=== PATIENT | male | born 1955 | race Caucasian/White ===

== ENCOUNTER 2024-11-27 15:46 | Inpatient (IN) | payer MEDICARE, BC ==
[2024-11-27 17:08] LABS: APPEARANCE,URINE CLEAR (CLEAR); GLUCOSE,URINE NEGATIVE (NEGATIVE); OCCULT BLOOD,URINE NEGATIVE (NEGATIVE)
[2024-11-27] MEDS: Iopamidol 755 Mg/ML 100 ML Bottle IV SCH (17:09)
[2024-11-27 17:13] LABS: EPITHELIAL CELLS,URINE FEW
[2024-11-27 20:30] LABS: LACTIC ACID 0.7 mmol/L (0.4-2.0)
[2024-11-27] MEDS ORDERED: Sennosides/Docusate Sodium 50-8.6 MG Tab PO PRN (20:32)
[2024-11-27] MEDS ORDERED: Ondansetron 4 MG Tab.DIS PO PRN (20:32)
[2024-11-27] MEDS ORDERED: Ondansetron 4 MG/2 ML SDV IV PRN (20:32)
[2024-11-27] MEDS: Fish Oil/Omega-3 Fatty Acids 1 Gm Cap PO SCH (21:29)
[2024-11-27] MEDS: Lactobacillus Rhamnosus GG (Probiotic) Cap PO SCH (21:30)
[2024-11-28 06:02] LABS: PLATELET COUNT,PLT 172.0 K/uL (130-375); RED BLOOD CELL COUNT 3.7 M/uL (4.14-5.76)
[2024-11-28 06:10] LABS: WHITE BLOOD CELL COUNT,WBC 0.9 K/uL (3.2-11.0)
[2024-11-28 06:25] LABS: BLOOD UREA NITROGEN,BUN 12.0 mg/dL (7-18); CARBON DIOXIDE,CO2 26.0 mmol/L (21-32); CHLORIDE,CL 103.0 mmol/L (100-108); CREATININE 0.9 mg/dL (0.8-1.3); EST CRCL DRUG DOSING (CG) 74.06 mL/min; ESTIMATED GFR 91.0 mL/min (>60); GLUCOSE RANDOM 86.0 mg/dL (74-106); POTASSIUM,K 3.5 mmol/L (3.6-5.2); SODIUM,NA 138.0 mmol/L (140-148)
[2024-11-28] MEDS: Verapamil 180 MG Tab.ER PO SCH (08:14)
[2024-11-28] MEDS: Fluticasone NASAL Spray 16 GM Bottle NASBOTH SCH (08:15)
[2024-11-28] MEDS: Hypromellose 0.3% Ophth Soln 15 ML Bottle EYEBOTH SCH (08:15)
[2024-11-28] MEDS ORDERED: Verapamil 120 MG Tab.ER PO SCH (09:00)
[2024-11-28] MEDS: Lactobacillus Rhamnosus GG (Probiotic) Cap PO SCH (17:54)
[2024-11-28] MEDS: Sodium Chloride 0.9% Inhalation Soln 3 ML Neb NEB SCH (18:24)
[2024-11-28] MEDS: Potassium Chloride 20 MEQ Tab.ER PO ONE (18:40)
[2024-11-29 06:08] LABS: BLOOD UREA NITROGEN,BUN 14.0 mg/dL (7-18); CARBON DIOXIDE,CO2 26.0 mmol/L (21-32); CHLORIDE,CL 105.0 mmol/L (100-108); CREATININE 0.9 mg/dL (0.8-1.3); EST CRCL DRUG DOSING (CG) 74.06 mL/min; ESTIMATED GFR 91.0 mL/min (>60); GLUCOSE RANDOM 91.0 mg/dL (74-106); POTASSIUM,K 4.0 mmol/L (3.6-5.2); SODIUM,NA 140.0 mmol/L (140-148)
[2024-11-29 06:15] LABS: PLATELET COUNT,PLT 197.0 K/uL (130-375); RED BLOOD CELL COUNT 3.79 M/uL (4.14-5.76)
[2024-11-29 06:17] LABS: WHITE BLOOD CELL COUNT,WBC 0.7 K/uL (3.2-11.0)
[2024-11-29] MEDS: Fish Oil/Omega-3 Fatty Acids 1 Gm Cap PO SCH (08:22)
[2024-11-29] MEDS ORDERED: Lactobacillus Rhamnosus GG (Probiotic) Cap PO SCH (17:00)
[2024-11-29] MEDS: Lactobacillus Rhamnosus GG (Probiotic) Cap PO SCH (17:30)
== END 2024-11-30 13:32 | disposition home or self-care (01) | DRG 194 ==
LOC: JP.ED 15:46 → JP.ICU 19:09
PROVIDERS: ADMIT Registered Nurse; ATTEND Hospitalist
DX: J18.9 Pneumonia, unspecified organism (principal); C91.11 Chronic lymphocytic leukemia of B-cell type in remission; D84.89 Other immunodeficiencies; D70.3 Neutropenia due to infection; R50.81 Fever presenting with conditions classified elsewhere; G47.30 Sleep apnea, unspecified; Z96.659 Presence of unspecified artificial knee joint; I10 Essential (primary) hypertension; K21.9 Gastro-esophageal reflux disease without esophagitis; Z79.899 Other long term (current) drug therapy; Z79.2 Long term (current) use of antibiotics; Z98.890 Other specified postprocedural states
CPT/HCPCS: 36415; 71275 ×2; 81001; 83605; 84484; 93005; A9270; J0692; J7030; Q9967; 80048; 85027; 93010; 94667; 96365; 99222; 99232; 99238; 99285; 99285-25; J3370; J7050